=== PATIENT | male | born 1935 | race Caucasian/White ===

== ENCOUNTER 2018-01-24 04:01 | Inpatient (IN) | payer MEDICARE, OTHER ==
[~2018-01-24] VITALS: Ht 182.9 cm; Wt 112.7 kg
--- NOTE | ~2018-01-24 | HP ---
PATIENT: TWAN GUNDERSON MEDICAL RECORD: [id number] ACCOUNT: [id number] LOCATION:[address] : 37 ADMISSION DATE: 01/24/18 HISTORY AND PHYSICAL EXAMINATION INFORMATION: Right-sided chest pains. HISTORY OF PRESENT ILLNESS: The patient is an 82-year-old male with essential hypertension, who states that for the last 2 days, he has had a very sharp pain in his right lateral chest wall, worse with deep inspiration. His said he had a little bit of a dry cough, nonproductive. He had some night sweats without fever. He has had no exertional pain, just some pain with deep inspiration. For that reason, he came to the ED. He reports mild shortness of breath since this has occurred, but no previous history of lung disease. PAST MEDICAL HISTORY: Essential hypertension, ventricular arrhythmia, osteoarthritis, prediabetes, history of anxiety, hemorrhoids. PAST SURGICAL HISTORY: Bilateral knee replacement, bilateral inguinal hernia repair, tonsillectomy as a child. ALLERGIES: None mentioned. CURRENT MEDICATIONS: Lisinopril 10 mg daily, red yeast rice 1 daily, flaxseed oil 1 daily, recently tapered off of Klonopin. FAMILY HISTORY: Father at 80, had diabetes. Mother at 77 from COPD. One brother with diabetes. SOCIAL HISTORY: He is , nonsmoker and nondrinker, retired. He has seen Dr. Hickman for arrhythmia in the past. He denies history of CAD. REVIEW OF SYSTEMS: GENERAL: Mild fatigued in the last few days with night sweats, but not fever, poor appetite. HEENT: No recent visual change, sinus congestion, or sore throat. RESPIRATORY: He has had shortness of breath due to pain on deep inspiration in the right lateral chest wall. He denies productive cough, but says he has had a little dry cough, she has noticed. Denies sinus congestion, previous history of pneumonia or hemoptysis. GASTROINTESTINAL: No nausea, vomiting, change in stools or blood per rectum. GENITOURINARY: Nocturia once nightly. ENDOCRINE: Denies polyuria, polydipsia. MUSCULOSKELETAL: He has some arthralgias in his lumbar spine. INTEGUMENT: No rash or itching. PSYCHIATRIC: Denies depressed mood. He has had anxiety for some time and he was on Klonopin for [address] Mauro is tapering him off of that and he is glad that is. PHYSICAL EXAMINATION: VITAL SIGNS: Temperature 98.5, pulse 83 and regular with occasional ectopic beat, respirations are 19, pressure 160/86 with a sat of 90% on room air. BMI is 32, weight is 240 pounds, height is 6 feet. GENERAL: The patient is alert and oriented. HEENT: Eyes are clear. Face is unremarkable. HISTORY AND PHYSICAL [id number] TWAN GUNDERSON NECK: Supple. CHEST: He splints on deep inspiration. I cannot hear rales or crackles or wheezes. HEART: Regular rate with occasional ectopic beat. No murmurs. ABDOMEN: Protuberant, obese, nontender. GENITOURINARY: Deferred. EXTREMITIES: He has scars over both knees with previous replacement. Trace bipedal and pretibial edema. NEUROLOGICAL: Grossly intact. LABORATORY DATA: EKG shows sinus rhythm with frequent unifocal PVCs. Nonspecific ST-T wave changes. CT of the chest shows multilobar pneumonia, most prominent in the right middle and right lower lobe, small pleural effusion. ASSESSMENT: Atypical community-acquired pneumonia, pleurisy as cause of chest pain, ventricular arrhythmia, essential hypertension, history of anxiety, depression, and osteoarthritis. PLAN: The patient admitted for broad-spectrum IV antibiotics. Cardiac monitoring. Further workup pending clinical course. TRANSINT:[id number] Voice Confirmation ID: [id number] DOCUMENT ID: [id number] SUDHAKAR MIGUEL MD at 1214 CC: [id number] DICTATION DATE: 01/24/18923 SHOP MECHANIC: 01/24/18 1138 ADM IN [place] [id number] [place] [address]
--- NOTE | ~2018-01-24 | DS ---
PATIENT:TWAN GUNDERSON :37 MEDICAL RECORD: [id number] DISCHARGE SUMMARY ADMISSION DATE: 01/24/18 DISCHARGE DATE: 01/30/18 DATE OF ADMISSION: 01/24/2018. DATE OF DISCHARGE: 01/30/2018. ADMIT DIAGNOSIS: Chest pain. PRINCIPAL DIAGNOSIS: Pneumonia. OTHER DIAGNOSES: Include reentry ventricular arrhythmia, pleurisy, hypertension, unspecified osteoarthritis, anxiety, depression, hemorrhoids, and constipation. CONSULTATIONS: None. PROCEDURES: None. HOSPITAL COURSE: The patient was admitted with pneumonia and he was treated with IV antibiotics and breathing treatments. He slowly improved with a course of his hospital stay, his pleuritic chest pain slowly improved as his pneumonia improved and when the patient stabilized, he was discharged home. The patient's condition at time of discharge was stable. DISPOSITION: Discharge home. DISCHARGE MEDICATIONS: Please refer to the discharge medication reconciliation form. Plan was to follow up with Dr. Mauro in 1 week in the clinic for follow up chest x-ray and further evaluation. TRANSINT:[id number] Voice Confirmation ID: [id number] DOCUMENT ID: [id number] MILLY MAURO MD at 0900 CC: [id number] DICTATION DATE: 02/13/18 1325 CREDIT UNION FIELD EXAMINER: 02/13/18 1600 DIS IN 01/30/18 [place] [address]
[2018-01-24 04:24] LABS: BASOPHILS 0.1 % (0-2); EOSINOPHILS 0.1 % (0-7); HEMATOCRIT 46.2 % (42.0-54.0); HEMOGLOBIN 16.1 g/dL (13.5-17.5); IMMATURE GRANULOCYTES 0.5 % (0-5); LYMPHOCYTES 13.4 % (15-50); MCH 31.3 pg (26.0-34.0); MCHC 34.8 g/dL (31.0-37.0); MCV 89.7 fL (80.0-100.0); MEAN PLATELET VOLUME 12.1 fL (7.4-10.4); MONOCYTES 15.7 % (2-11); NEUTROPHILS 70.2 % (40-80); PLATELET COUNT 167 10x3/uL (130-400); RBC 5.15 10x6/uL (4.20-6.10); RDW 14.1 % (11.5-14.5); WBC 16.5 10x3/uL (4.8-10.8)
[2018-01-24 04:37] LABS: ALBUMIN 3.4 g/dL (3.4-5.0); ALKALINE PHOSPHATASE 57 U/L (46-116); ALT (SGPT) 26 U/L (10-68); CALC OSMOLALITY 278 mosm/kg (275-300); CARBON DIOXIDE 25.3 mmol/L (21.0-32.0); CHLORIDE - SERUM 101 mmol/L (98-107); CREATININE - SERUM 1.1 mg/dL (0.6-1.3); GLUCOSE 150 mg/dL (74-106); POTASSIUM - SERUM 4.1 mmol/L (3.5-5.1); PROTEIN - SERUM 7.8 g/dL (6.4-8.2); SODIUM 136 mmol/L (136-145); UREA NITROGEN 24 mg/dL (7-18); eGFR NON AFRICAN AMERICAN 68 mL/min (90-120)
[2018-01-24 04:49] LABS: CHOL - HDL RATIO 3.3 ratio (2.3-4.9); CHOLESTEROL, TOTAL 180 mg/dL (0-200); CKMB 0.3 U/L (0.0-3.6); CREATINE KINASE 87 UL (21-232); HDL CHOLESTEROL 54 mg/dL (32-96); LDL CHOLESTEROL 111 mg/dL (0-100); LDL-HDL RATIO 2.1 ratio (1.5-3.5); TRIGLYCERIDE 79 mg/dL (30-200)
[2018-01-24 04:50] LABS: TROPONIN-I < 0.017 ng/mL (0.000-0.060)
[2018-01-24] MEDS ORDERED: DILT-XR240 MG PO (10:39)
[2018-01-24] MEDS ORDERED: LEXAPRO10 MG PO (10:40)
[2018-01-24] MEDS ORDERED: ASPIRIN81 MG PO (10:40)
[2018-01-24] MEDS ORDERED: CLONAZEPAM0.25 MG/TA PO (10:44)
[2018-01-24 11:32] VITALS: BP 196/98; BMI 33.2
[2018-01-24 16:33] VITALS: BP 143/61
[2018-01-24 20:46] VITALS: BP 137/73
[2018-01-25 01:06] VITALS: BP 138/73
[2018-01-25 04:36] LABS: BASOPHILS 0.1 % (0-2); EOSINOPHILS 0.1 % (0-7); IMMATURE GRANULOCYTES 0.4 % (0-5); LYMPHOCYTES 9.6 % (15-50); MCH 30.4 pg (26.0-34.0); MCHC 33.3 g/dL (31.0-37.0); MCV 91.3 fL (80.0-100.0); MEAN PLATELET VOLUME 12.5 fL (7.4-10.4); MONOCYTES 18.4 % (2-11); NEUTROPHILS 71.4 % (40-80); PLATELET COUNT 171 10x3/uL (130-400); RBC 4.93 10x6/uL (4.20-6.10); RDW 14.2 % (11.5-14.5); WBC 13.6 10x3/uL (4.8-10.8)
[2018-01-25 04:49] LABS: ANION GAP 10.8 mmol/L (8-16); CALCIUM 9.1 mg/dL (8.5-10.1); CARBON DIOXIDE 28.6 mmol/L (21.0-32.0); CREATININE - SERUM 1.1 mg/dL (0.6-1.3); POTASSIUM - SERUM 4.4 mmol/L (3.5-5.1)
[2018-01-25 06:10] VITALS: BP 132/81
[2018-01-25 09:12] VITALS: BP 133/57
[2018-01-25 12:37] VITALS: BP 139/76
[2018-01-25 17:32] VITALS: BP 179/75
[2018-01-25 20:00] VITALS: BP 142/73
[2018-01-26] VITALS: BP 127/52
[2018-01-26 04:00] VITALS: BP 136/70
[2018-01-26 08:11] VITALS: BP 139/78
[2018-01-26 12:24] VITALS: BP 138/80
[2018-01-26 15:31] VITALS: BP 141/82
[2018-01-26 20:00] VITALS: BP 151/83
[2018-01-27 06:13] LABS: BASOPHILS 0.1 % (0-2); EOSINOPHILS 0.5 % (0-7); HEMATOCRIT 45.7 % (42.0-54.0); HEMOGLOBIN 15.3 g/dL (13.5-17.5); IMMATURE GRANULOCYTES 0.4 % (0-5); LYMPHOCYTES 23.6 % (15-50); MCH 30.7 pg (26.0-34.0); MCHC 33.5 g/dL (31.0-37.0); MCV 91.8 fL (80.0-100.0); MEAN PLATELET VOLUME 12.3 fL (7.4-10.4); MONOCYTES 14.3 % (2-11); NEUTROPHILS 61.1 % (40-80); PLATELET COUNT 207 10x3/uL (130-400); RBC 4.98 10x6/uL (4.20-6.10); RDW 14.2 % (11.5-14.5); WBC 9.7 10x3/uL (4.8-10.8)
[2018-01-27 06:39] LABS: ALKALINE PHOSPHATASE 94 U/L (46-116); ALT (SGPT) 76 U/L (10-68); CALC OSMOLALITY 279 mosm/kg (275-300); CALCIUM 9.3 mg/dL (8.5-10.1); CHLORIDE - SERUM 102 mmol/L (98-107); CREATININE - SERUM 0.9 mg/dL (0.6-1.3); GLUCOSE 114 mg/dL (74-106); POTASSIUM - SERUM 4.4 mmol/L (3.5-5.1); PROTEIN - SERUM 7.6 g/dL (6.4-8.2); SODIUM 139 mmol/L (136-145); UREA NITROGEN 16 mg/dL (7-18); eGFR NON AFRICAN AMERICAN 86 mL/min (90-120)
[2018-01-27 08:24] VITALS: BP 158/86
[2018-01-27 12:35] VITALS: BP 180/85
[2018-01-27 20:00] VITALS: BP 172/86
[2018-01-28 04:00] VITALS: BP 180/78
[2018-01-28 06:15] LABS: BASOPHILS 0.1 % (0-2); HEMATOCRIT 43.5 % (42.0-54.0); HEMOGLOBIN 14.4 g/dL (13.5-17.5); IMMATURE GRANULOCYTES 0.6 % (0-5); LYMPHOCYTES 21.3 % (15-50); MCH 30.3 pg (26.0-34.0); MCHC 33.1 g/dL (31.0-37.0); MCV 91.6 fL (80.0-100.0); MONOCYTES 17.3 % (2-11); NEUTROPHILS 59.7 % (40-80); PLATELET COUNT 197 10x3/uL (130-400); RBC 4.75 10x6/uL (4.20-6.10); RDW 13.8 % (11.5-14.5); WBC 7.3 10x3/uL (4.8-10.8)
[2018-01-28 07:06] LABS: ALBUMIN 2.7 g/dL (3.4-5.0); ALKALINE PHOSPHATASE 78 U/L (46-116); ALT (SGPT) 58 U/L (10-68); BILIRUBIN - TOTAL 0.36 mg/dL (0.2-1.3); CALC OSMOLALITY 281 mosm/kg (275-300); CALCIUM 9.3 mg/dL (8.5-10.1); CARBON DIOXIDE 32.4 mmol/L (21.0-32.0); CHLORIDE - SERUM 103 mmol/L (98-107); GLUCOSE 119 mg/dL (74-106); POTASSIUM - SERUM 4.4 mmol/L (3.5-5.1); PROTEIN - SERUM 6.8 g/dL (6.4-8.2); SODIUM 141 mmol/L (136-145); UREA NITROGEN 13 mg/dL (7-18); eGFR NON AFRICAN AMERICAN 76 mL/min (90-120)
[2018-01-28 08:40] VITALS: BP 155/97
[2018-01-28 12:48] VITALS: BP 165/73
[2018-01-28 16:15] VITALS: BP 171/92
[2018-01-28 20:04] VITALS: BP 147/82
[2018-01-29] VITALS (8 sets, daily range): BP systolic 103–172; BP diastolic 61–94; Ht 182.9 cm; Wt 112.7 kg
[2018-01-29 05:35] LABS: BASOPHILS 0.3 % (0-2); EOSINOPHILS 1.5 % (0-7); HEMATOCRIT 43.9 % (42.0-54.0); HEMOGLOBIN 14.7 g/dL (13.5-17.5); LYMPHOCYTES 25.6 % (15-50); MCH 30.4 pg (26.0-34.0); MCHC 33.5 g/dL (31.0-37.0); MCV 90.9 fL (80.0-100.0); MEAN PLATELET VOLUME 12.2 fL (7.4-10.4); NEUTROPHILS 56.6 % (40-80); PLATELET COUNT 215 10x3/uL (130-400); RBC 4.83 10x6/uL (4.20-6.10); RDW 13.8 % (11.5-14.5); WBC 7.3 10x3/uL (4.8-10.8)
[2018-01-29 05:54] LABS: ALBUMIN 2.7 g/dL (3.4-5.0); ALKALINE PHOSPHATASE 72 U/L (46-116); ALT (SGPT) 51 U/L (10-68); CALC OSMOLALITY 278 mosm/kg (275-300); CHLORIDE - SERUM 102 mmol/L (98-107); CREATININE - SERUM 0.9 mg/dL (0.6-1.3); GLUCOSE 104 mg/dL (74-106); PROTEIN - SERUM 6.8 g/dL (6.4-8.2); SODIUM 139 mmol/L (136-145); UREA NITROGEN 14 mg/dL (7-18); eGFR NON AFRICAN AMERICAN 86 mL/min (90-120)
[2018-01-29] MEDS ORDERED: ZITHROMAX250 MG PO (17:59)
[2018-01-29] MEDS ORDERED: MUCINEX600 MG PO (18:00)
[2018-01-30 04:39] VITALS: BP 170/88
[2018-01-30 05:33] LABS: ALBUMIN 2.7 g/dL (3.4-5.0); ANION GAP 9.4 mmol/L (8-16); BILIRUBIN - TOTAL 0.26 mg/dL (0.2-1.3); CALCIUM 9.1 mg/dL (8.5-10.1); CARBON DIOXIDE 32.9 mmol/L (21.0-32.0); CREATININE - SERUM 1.1 mg/dL (0.6-1.3); POTASSIUM - SERUM 4.3 mmol/L (3.5-5.1); PROTEIN - SERUM 6.8 g/dL (6.4-8.2)
[2018-01-30 05:37] LABS: BASOPHILS 0.3 % (0-2); EOSINOPHILS 2.1 % (0-7); HEMATOCRIT 43.6 % (42.0-54.0); HEMOGLOBIN 14.4 g/dL (13.5-17.5); IMMATURE GRANULOCYTES 1.3 % (0-5); LYMPHOCYTES 24.5 % (15-50); MCH 30.2 pg (26.0-34.0); MCV 91.4 fL (80.0-100.0); MEAN PLATELET VOLUME 11.9 fL (7.4-10.4); MONOCYTES 14.2 % (2-11); NEUTROPHILS 57.6 % (40-80); PLATELET COUNT 227 10x3/uL (130-400); RBC 4.77 10x6/uL (4.20-6.10); RDW 13.7 % (11.5-14.5); WBC 7.1 10x3/uL (4.8-10.8)
[2018-01-30 08:02] VITALS: BP 145/76
== END 2018-01-30 11:39 | disposition home or self-care (01) | DRG 194 ==
LOC: D.ER 04:01 → D.EDHOLD 07:02 → D.M2 07:02
PROVIDERS: Family Medicine
DX: J18.9 Pneumonia, unspecified organism (principal); I47.0 Re-entry ventricular arrhythmia; R09.1 Pleurisy; I10 Essential (primary) hypertension; M19.90 Unspecified osteoarthritis, unspecified site; F41.9 Anxiety disorder, unspecified; F32.9 Major depressive disorder, single episode, unspecified; K64.9 Unspecified hemorrhoids; K59.00 Constipation, unspecified

== ENCOUNTER → 2018-02-24 14:01 | Outpatient (CLI) | payer MEDICARE, OTHER ==
[2018-01-29 13:44] VITALS: BMI 33.9
[~2018-02-24 14:01] MED LIST: ASPIRIN81 MG PO; CLONAZEPAM0.25 MG/TA PO; DILT-XR240 MG PO; LEXAPRO10 MG PO; MUCINEX600 MG PO; ZITHROMAX250 MG PO
== END | disposition home or self-care (01) ==
LOC: D.CT 14:01
DX: J90 Pleural effusion, not elsewhere classified (principal); J18.9 Pneumonia, unspecified organism

== ENCOUNTER → 2018-05-01 08:37 | Outpatient (CLI) | payer MEDICARE, OTHER ==
[2018-01-29 13:44] VITALS: BMI 33.9
--- NOTE | ~2018-05-01 | EC ---
PATIENT:TWAN GUNDERSON DATE OF SERVICE: 05/01/18 SEX: M MEDICAL RECORD: [id number] DATE OF : 37 LOCATION:D[facility] AGE OF PATIENT: 83 ADMISSION DATE: 05/01/18 REFERRING PHYSICIAN: INTERPRETING PHYSICIAN: RALF RAMOS MD ECHOCARDIOGRAM REPORT ECHO CHARGES 4 ECHO COMPLETE Date: 05/01 CLINICAL DIAGNOSIS: PLEURAL EFFUSION/DYSPNEA ECHOCARDIOGRAPHIC MEASUREMENTS (adult normal given) AC root (d.<3.7cm) 3.7 cm LV Septum d (<1.2 cm> 1.1 cm Valve Excursion 2.0 cm LV Septum (systole) 2.1 cm Left Atria (s.<4.0cm> 4.7 cm LVPW d(<1.2cm) 1.3 cm RV (d.<2.3cm) 3.4 cm LVPW (sytole) 1.9 cm LV diastole(<5.6CM) 5.5 cm MV E-F(>70mm/sec) cm LV systole 2.9 cm LVOT Diameter 2.2 cm MV exc.(>10mm) cm Est.ejection fraction (50-75%) % DOPPLER: LVIT cm/sec A 87.0 cm/sec E 73.0 cm/sec LA cm/sec RVSP 35.0 mmHg LVOT 116 cm/sec AOP1/2T m/s Asc. Ao 159 cm/sec RVOT 54.0 cm/sec RA cm/sec PA 114 cm/sec AV Gradient Peak 10.1 mmHg AV Mean 4.1 mmHg AV Area 3.0 cm MV Gradient Peak 4.6 mmHg MV Mean 1.5 mmHg MV Area cm COMMENTS: Landscape Crew Member: 1 DEMI DANIELLEOE Sales Department Supervisor: 3 Dr. Sesay TAPE# PACS Pericardial Effusion N DATE OF SERVICE: FINDINGS: 1. Left ventricular chamber size is within normal limits. Left ventricular systolic function is normal. Overall ejection fraction estimated at 55%. 2. Left atrium is enlarged at 4.7 cm. Right atrium and right ventricular chamber sizes are as well mildly dilated. 3. Valvular structures have normal structure and motion. 4. Doppler interrogation reveals trace mitral regurgitation, trace tricuspid regurgitation, no other valvular insufficiency or stenosis. Pulmonary systolic ECHOCARDIOGRAM REPORT [id number] TWAN GUNDERSON pressure is estimated 35 mmHg. 5. No evidence of pericardial effusion or left ventricular thrombus. TRANSINT:[id number] Voice Confirmation ID: [id number] DOCUMENT ID: [id number] RALF RAMOS MD at 1843 CC: [id number] DICTATION DATE: 05/01/181207 AIR COMPRESSOR ENGINEER: 05/01/18 1213 [facility] [address] [place] [id number]
[2018-05-02 06:15] LABS: IMMUNOGLOBULIN A 97 mg/dL (61-437); IMMUNOGLOBULIN G 1010 mg/dL (700-1600); IMMUNOGLOBULIN M 139 mg/dL (15-143)
[2018-05-05 11:13] LABS: ANA REFLEX - ANTICHROMATIN ABS <0.2 AI (0.0-0.9); ANA REFLEX - CENTROMERE B ABS <0.2 AI (0.0-0.9); ANA REFLEX - DBL STRANDED DNA <1 IU/mL (0-9); ANA REFLEX - DIRECT Positive (Negative); ANA REFLEX - JO-1 AB <0.2 AI (0.0-0.9); ANA REFLEX - RNP ANTIBODIES 1.1 AI (0.0-0.9); ANA REFLEX - SCL-70 <0.2 AI (0.0-0.9); ANA REFLEX - SJOGRENS AB SSA 0.2 AI (0.0-0.9); ANA REFLEX - SJOGRENS AB SSB <0.2 AI (0.0-0.9); ANA REFLEX - SMITH AB <0.2 AI (0.0-0.9)
[2018-05-05 18:09] LABS: IMMUNOGLOBULIN E 18 IU/mL (0-100)
== END | disposition home or self-care (01) ==
LOC: D.ECHO 08:37
PROVIDERS: Internal Medicine Pulmonary Disease
DX: R06.02 Shortness of breath (principal); J90 Pleural effusion, not elsewhere classified; J18.9 Pneumonia, unspecified organism; R09.1 Pleurisy

== ENCOUNTER → 2018-06-02 08:11 | Outpatient (CLI) | payer MEDICARE, OTHER ==
[2018-01-29 13:44] VITALS: BMI 33.9
--- NOTE | ~2018-06-02 | EC ---
PATIENT:TWAN GUNDERSON DATE OF SERVICE: 06/02/18 SEX: M MEDICAL RECORD: [id number] DATE OF : 37 LOCATION:D[facility] AGE OF PATIENT: 83 ADMISSION DATE: 06/02/18 REFERRING PHYSICIAN: INTERPRETING PHYSICIAN: RALF MOLINA MD ECHOCARDIOGRAM REPORT ECHO CHARGES 4 ECHO COMPLETE Date: 06/02/18 CLINICAL DIAGNOSIS: DYSPENEA ECHOCARDIOGRAPHIC MEASUREMENTS (adult normal given) AC root (d.<3.7cm) 3.2 cm LV Septum d (<1.2 cm> 1.3 cm Valve Excursion 1.9 cm LV Septum (systole) 1.6 cm Left Atria (s.<4.0cm> 4.6 cm LVPW d(<1.2cm) 1.2 cm RV (d.<2.3cm) 3.2 cm LVPW (sytole) 1.2 cm LV diastole(<5.6CM) 6.8 cm MV E-F(>70mm/sec) cm LV systole 6.0 cm LVOT Diameter 2.0 cm MV exc.(>10mm) cm Est.ejection fraction (50-75%) % DOPPLER: LVIT cm/sec A 84 cm/sec E 68 cm/sec LA cm/sec RVSP 31.8 mmHg LVOT 103 cm/sec AOP1/2T m/s Asc. Ao 150 cm/sec RVOT 65 cm/sec RA cm/sec PA 67 cm/sec AV Gradient Peak 9.0 mmHg AV Mean 4.9 mmHg AV Area 2.1 cm MV Gradient Peak 2.8 mmHg MV Mean 1.2 mmHg MV Area cm COMMENTS: Chemistry Quality Control Technician: Jeff [facility] Community Arts Worker: 1 Dr. Molina TAPE# PACS Pericardial Effusion N DATE OF SERVICE: 06/02/2018 FINDINGS: 1. Left ventricular chamber size is mildly dilated. Left ventricular systolic function is normal. Overall ejection fraction estimated at 55% to 60%. 2. Left atrium is within normal limits. Right atrium and right ventricle chamber sizes are mildly dilated. 3. Valvular structures have normal structure and motion. 4. Doppler interrogation reveals only mild mitral regurgitation, mild tricuspid regurgitation, no other valvular insufficiency or stenosis. Pulmonary systolic ECHOCARDIOGRAM REPORT [id number] TWAN GUNDERSON pressure is estimated at 32 mmHg. 5. No evidence of pericardial effusion or left ventricular thrombus. TRANSINT:[id number] Voice Confirmation ID: [id number] DOCUMENT ID: [id number] RALF MOLINA MD at 0923 CC: [id number] DICTATION DATE: 06/02/18 1108 REPRESENTATIVE PERSONAL SERVICE: 06/02/18 1246 DEP CLI 06/02/18 [place] [id number] [place] [id number]
== END | disposition home or self-care (01) ==
LOC: D.ECHO 08:11
DX: R06.02 Shortness of breath (principal)

== ENCOUNTER → 2018-06-19 08:10 | Outpatient (CLI) | payer MEDICARE, OTHER ==
[2018-01-29 13:44] VITALS: BMI 33.9
== END | disposition home or self-care (01) ==
LOC: D.RT 06-18 09:00
DX: R06.02 Shortness of breath (principal)